=== PATIENT | female | born 1985 | race Caucasian/White ===

== ENCOUNTER 2016-12-06 14:30 | Emergency (ER) | payer OTHER ==
[~2016-12-06] VITALS: Ht 170.1 cm; Wt 61.2 kg
[~2016-12-06 14:30] MED LIST: 'XANAX1 MG PO; ABILIFY2 MG PO; AMITRIPTYLINE25 MG PO; ATIVAN1 MG PO; ATIVAN2 M1 PO; CITALOPRAM20 MG PO; FAMILY PHARMAC0.4 MG PO; KEFLEX500 MG PO; KLOR-CON 88 ME1 PO; LOPRESSOR25 MG PO; METOPROLOL SUCC25 M2 PO; NORCO 10-325 T1 EACH PO; OYSCO 500500 M1 PO; PANTOPRAZOLE SO40 MG PO; PREDNISONE10 MG PO; PREDNISONE5 MG PO; PYRIDOSTIGMINE60 MG PO; Pyridostigmine60 MG PO; TIZANIDINE HCL4 M1 PO; TRAZODONE100 MG PO; VALACYCLOVIR H500 M1 PO; VALTREX500 MG PO; VITAMIN D50000 IU PO; XANAX1 MG PO
[2016-12-06] MEDS ORDERED: CEPHALEXIN500 M1 PO (14:57)
== END 2016-12-06 16:34 | disposition home or self-care (01) ==
LOC: ED 14:30
DX: L60.0 Ingrowing nail (principal); F17.200 Nicotine dependence, unspecified, uncomplicated; Z79.899 Other long term (current) drug therapy

== ENCOUNTER 2017-04-08 01:45 | Emergency (ER) | payer OTHER ==
[~2017-04-08] VITALS: Ht 170.1 cm; Wt 68.0 kg
[~2017-04-08 01:45] MED LIST changes: +CEPHALEXIN500 M1 PO
[2017-04-08] MEDS ORDERED: SUBOXONE 8 MG-1 EACH SL (01:55)
[2017-04-08] MEDS ORDERED: CITALOPRAM HYDR20 MG PO (01:55)
[2017-04-08] MEDS ORDERED: SEROQUEL XR150 MG PO (01:57)
[2017-04-08 02:07] LABS: BASO # 0.1 10*3/uL (0.0-0.1); BASO % 0.5 % (0.0-1.0); EOS # 0.2 10*3/uL (0.0-0.4); EOS % 1.4 % (1.0-4.0); HEMATOCRIT 35.8 % (37.0-47.0); HEMOGLOBIN 11.8 g/dl (12.0-16.0); LYMPH # 2.7 10*3/uL (1.3-4.4); LYMPH % 17.5 % (27.0-41.0); MEAN CELL VOLUME 97.3 fl (81.0-99.0); MEAN CORPUSCULAR HGB 32.1 pg (27.0-31.0); MEAN PLATELET VOLUME 9.4 fl (9.6-12.3); MONO # 1.3 10*3/uL (0.1-1.0); MONO % 8.2 % (3.0-9.0); NEUT # 10.9 10*3/uL (2.3-7.9); NEUT % 70.6 % (47.0-73.0); PLATELET COUNT AUTOMATED 312 10*3/uL (130-400); RED BLOOD COUNT 3.68 10*6/uL (4.10-5.10); RED CELL DISTRI WIDTH 13.4 % (0-14.5); WHITE BLOOD COUNT 15.5 10*3/uL (4.8-10.8)
[2017-04-08 02:16] LABS: ACT PARTIAL THROMBO TIME 23.7 SECONDS (20.8-31.5); INTERNATIONAL NORM RATIO 0.9 (2.0-3.5)
[2017-04-08 02:27] LABS: ALBUMIN 3.4 gm/dl (3.1-4.5); ALKALINE PHOSPHATASE 93 U/L (45-117); BUN 11 mg/dl (7-24); CHLORIDE 103 mmol/L (98-107); CREATININE 0.72 mg/dL (0.55-1.02); POTASSIUM 3.7 mmol/L (3.5-5.1); SGOT/AST 29 IU/L (3-35); SGPT/ALT 64 U/L (12-78); SODIUM 141 mmol/L (136-145); TOTAL PROTEIN 6.5 gm/dL (6.4-8.2)
[2017-04-08 02:36] LABS: TROPONIN I < 0.015 ng/ml (<0.045)
[2017-04-08 04:29] LABS: BILIRUBIN NEGATIVE (NEGATIVE); BLOOD NEGATIVE (NEGATIVE); CLARITY SL CLOUDY (CLEAR); COLOR YELLOW (YELLOW); GLUCOSE NEGATIVE (NEGATIVE); KETONE NEGATIVE (NEGATIVE); LEUKO ESTERASE NEGATIVE (NEGATIVE); NITRITE NEGATIVE (NEGATIVE); SPECIFIC GRAVITY 1.015 (1.005-1.030); UROBILINOGEN 0.2 E.U./dl (0.2-1.0)
[2017-04-08] MEDS ORDERED: METOPROLOL SUCC25 M2 PO (04:34)
[2017-04-08] MEDS ORDERED: VENTOLIN 02.5 MG/3 M INH (04:34)
[2017-04-08 04:37] LABS: EPITHELIAL CELLS 45-50
[2017-04-08 04:39] LABS: URINE AMPHETAMINES < 1000 (1000ng/ml); URINE BARBITURATES < 200 (200ng/ml); URINE BENZODIAZEPINES < 200 (200ng/ml); URINE CANNABINOIDS (THC) < 50 (50ng/ml); URINE COCAINE < 300 (300ng/ml); URINE METHADONE < 300 (300ng/ml); URINE OPIATES < 300 (300ng/ml); URINE PHENCYCLIDINE < 25 (25ng/ml)
== END 2017-04-08 05:39 | disposition home or self-care (01) ==
LOC: ED 01:45
PROVIDERS: Emergency Medicine Emergency Medical Services
DX: R07.89 Other chest pain (principal); J45.909 Unspecified asthma, uncomplicated; R00.2 Palpitations; G70.00 Myasthenia gravis without (acute) exacerbation; F41.9 Anxiety disorder, unspecified; F17.210 Nicotine dependence, cigarettes, uncomplicated; Z90.49 Acquired absence of other specified parts of digestive tract; Z79.899 Other long term (current) drug therapy